=== PATIENT | female | born 1995 ===

== ENCOUNTER 2021-01-27 13:00 | Emergency (ER) | payer OTHER, MEDICAID ==
[2021-01-27 13:25] VITALS: BP 126/84
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
== END 2021-01-27 15:50 | disposition home or self-care (01) ==
LOC: ED 13:00
DX: S16.1XXA Strain of muscle, fascia and tendon at neck level, initial encounter (principal); M79.602 Pain in left arm; M79.601 Pain in right arm; Z79.899 Other long term (current) drug therapy; V49.49XA Driver injured in collision with other motor vehicles in traffic accident, initial encounter; Y92.410 Unspecified street and highway as the place of occurrence of the external cause; Y93.89 Activity, other specified; Y99.8 Other external cause status
CPT/HCPCS: 99282

== ENCOUNTER 2021-07-24 11:41 | Emergency (ER) | payer MEDICAID, OTHER ==
[2021-07-24 14:16] VITALS: BP 118/85
[2021-07-24] MEDS ORDERED: LIDOCAINE-MPF (1%) 10 MG/1 ML VIAL 5 ML INFILTRATI ONE (14:18)
--- NOTE | 2021-07-24 14:20 | Emergency Department Report ---
ED Female HPI - General Chief complaint: Urogenital-Female Stated complaint: VAGINAL DISCHARG Time Seen by Provider: 07/24/21 14:14 Source: patient Mode of arrival: Ambulatory Limitations: No Limitations - History of Present Illness Initial comments: The patient was evaluated in the emergency department for symptoms described in the history of present illness. He/she was evaluated in the context of the global COVID-19 pandemic, which necessitated consideration that the patient might be at risk for infection with the virus that causes COVID-19. I nstitutional protocols and algorithms that pertain to the evaluation of patients at risk for COVID-19 are in a state of rapid change based on information released by regulatory bodies including the CDC and federal and state organizations. These policies and algorithms were followed during the patient's care in the emergency department. Please note that these policies, procedures and recommendations changed on a rapid basis. 25-year-old -[place] female presents to the emergency room for weird discharge. Patient states that she received a call from a testing location she went to in [place] and they said that she had possible trichomonas she thinks. Patient denies any abdominal pain back pain no dysuria. She does admit to brownish discharge. She does admit to unprotected intercourse. States that she is on Nexplanon for control. Denies any pain at this time no nausea no vomiting fever or chills. Complaint: vaginal discharge, possible STD Onset/Timin -: week(s) Severity scale (0 -10): 0 Improves with: none Worsens with: none Are you Now?: Yes Last Menstrual Period: 05/29/21 EDC: 03/05/22 Associated Symptoms: vaginal discharge. denies: vaginal bleeding, nausea/vomiting, fever/chills, dysuria, hematuria - Related Data Sexually active: Yes : 2 Para: 2 Previous Rx's Medication Instructions Recorded Last Taken Type Naproxen [EC-Naprosyn] 500 mg PO BID PRN #14 tablet. 01/27/21 Unknown Rx methOCARBAMOL [Robaxin TAB] 500 mg PO BID PRN #14 tab 01/27/21 Unknown Rx Doxycycline Hyclate [Doxycycline 100 mg PO BID 10 Days #20 tablet 07/24/21 Unknown Rx Hyclate TAB] metroNIDAZOLE [Flagyl TAB] 500 mg PO Q8HR 7 Days #21 tablet 07/24/21 Unknown Rx Allergies Allergy/AdvReac Type Severity Reaction Status Date / Time No Known Allergies Allergy Unverified 01/27/21 13:25 ED Review of Systems ROS: Stated complaint: VAGINAL DISCHARG Other details as noted in HPI Comment: All other systems reviewed and negative ED Past Medical Hx - Past Medical History Previous Medical History?: No Additional medical history: denies - Surgical History Past Surgical History?: No Additional Surgical History: denies - Social History Smoking Status: Never Smoker Substance Use Type: None - Medications Home Medications: Home Medications Medication Instructions Recorded Confirmed Last Taken Type Naproxen [EC-Naprosyn] 500 mg PO BID PRN #14 tablet. 01/27/21 Unknown Rx methOCARBAMOL [Robaxin TAB] 500 mg PO BID PRN #14 tab 01/27/21 Unknown Rx Doxycycline Hyclate [Doxycycline 100 mg PO BID 10 Days #20 tablet 07/24/21 Unknown Rx Hyclate TAB] metroNIDAZOLE [Flagyl TAB] 500 mg PO Q8HR 7 Days #21 tablet 07/24/21 Unknown Rx ED Physical Exam - General Limitations: No Limitations ED Medical Decision Making - Medical Decision Making 25-year-old -[place] female presents to the emergency room for weird discharge. Patient states that she received a call from a testing location she went to in [place] and they said that she had possible trichomonas she thinks. Patient denies any abdominal pain back pain no dysuria. She does admit to brownish discharge. She does admit to unprotected intercourse. States that she is on Nexplanon for control. Denies any pain at this time no nausea no vomiting fever or chills. Discussed with patient we do not check for STDs. I will give her a shot of Rocephin for possible gonorrhea doxycycline prescription and Flagyl for trichomonas and possible bacterial vaginosis. Patient is referred to [facility] and health department for full STD evaluation a screening. Discussed with patient to refrain from intercourse. She needs to use condoms. Critical care attestation.: If time is entered above; I have spent that time in minutes in the direct care of this critically ill patient, excluding procedure time. ED Disposition Clinical Impression: Concern about STD in female without diagnosis Disposition: 01 HOME / SELF CARE / HOMELESS Is pt being admited?: No Does the pt Need Aspirin: No Condition: Stable Instructions: Safe Sex, Trichomoniasis, Preventing Sexually Transmitted Infections, Adult Additional Instructions: Please antibiotics as prescribed. Refrain from intercourse for 2 weeks you need to follow-up with health department for full STD evaluation and treatment. Prescriptions: Doxycycline Hyclate [Doxycycline Hyclate TAB] 100 mg PO BID 10 Days #20 tablet metroNIDAZOLE [Flagyl TAB] 500 mg PO Q8HR 7 Days #21 tablet Referrals: [facility] [Outside] - 3-5 Days [facility] [Outside] - 3-5 Days [facility] [Outside] - 3-5 Days Forms: Work/School Release Form(ED)
== END 2021-07-24 15:00 | disposition home or self-care (01) ==
LOC: ED 11:41
DX: N89.8 Other specified noninflammatory disorders of vagina (principal); Z20.2 Contact with and (suspected) exposure to infections with a predominantly sexual mode of transmission
CPT/HCPCS: 96372; 99281; J0696